=== PATIENT | female | born 1980 | race Caucasian/White ===

== ENCOUNTER → 2024-04-10 | Day surgery (SDC) | payer OTHER | END | disposition home or self-care (01) | LOC: JRADUS-SUR 09:50 | PROVIDERS: ATTEND Surgery | PROC: BH00ZZZ Plain Radiography of Right Breast (ICD-10-PCS; principal; 2024-04-10) | DX: D24.1 Benign neoplasm of right breast (principal) | CPT/HCPCS: 19281; A4648 ==

== ENCOUNTER 2024-04-12 04:12 | Day surgery (SDC) | payer OTHER ==
[2024-04-07 11:19] VITALS: BMI 27.0
[2024-04-12 09:08] VITALS: RESP 18
[2024-04-12] MEDS ORDERED: LIDOCAINE HCL 1%, 10 MG/ML (20ML VIAL) ONE (09:49)
[2024-04-12] MEDS ORDERED: PROPOFOL 20 ML ONE (10:22)
[2024-04-12] MEDS ORDERED: MIDAZOLAM HCL 2 MG/2 ML SINGLE DOSE VIAL ONE (10:23)
[2024-04-12] MEDS ORDERED: LIDOCAINE HCL/PF 2% SDV 5ML VIAL ONE (10:23)
[2024-04-12] MEDS ORDERED: CLINDAMYCIN PHOSPHATE 600 MG/4 ML VIAL ONE (10:24)
[2024-04-12] MEDS: CLINDAMYCIN PHOSPHATE 600 MG/4 ML VIAL IVPB ONE (10:34)
[2024-04-12] MEDS ORDERED: DEXAMETHASONE SOD PHOSPHATE 4 MG/1 ML VIAL ONE (10:39)
[2024-04-12] MEDS ORDERED: ONDANSETRON 4 MG/2 ML VIAL ONE (10:39)
[2024-04-12] MEDS ORDERED: ACETAMINOPHEN INJECTION 100 ML IVPB ONE (10:41)
[2024-04-12] MEDS ORDERED: KETOROLAC TROMETHAMINE 30 MG/1 ML VIAL ONE (10:42)
[2024-04-12] MEDS: LIDOCAINE HCL 1%, 10 MG/ML (50 mL VIAL) INF ONE ×2 (10:51)
[2024-04-12] MEDS ORDERED: ONDANSETRON 4 MG/2 ML VIAL IVPUSH PRN (12:00)
[2024-04-12] MEDS ORDERED: oxyCODONE HCL 5 MG TABLET PO PRN (12:00)
[2024-04-12] MEDS ORDERED: LACTATED RINGERS SOLUTION 1,000 ML IV SCH (12:00)
[2024-04-12] MEDS ORDERED: PROMETHAZINE HCL 25 MG/1 ML VIAL IVPB PRN (12:00)
[2024-04-12 13:42] VITALS: BP 106/68; PULSE 68; TEMP 98.6
== END 2024-04-12 13:49 | disposition home or self-care (01) ==
LOC: JASU-SURG 04:12
PROVIDERS: ATTEND Surgery
PROC: 0HBT0ZX Excision of Right Breast, Open Approach, Diagnostic (ICD-10-PCS; principal; 2024-04-12 10:30)
DX: D24.1 Benign neoplasm of right breast (principal)
CPT/HCPCS: 76098-TC-FY; 81025; 88307-TC; 94760; J0131